=== PATIENT | female | born 1980 | race African-American/Black ===

== ENCOUNTER 2022-01-01 11:15 | Inpatient (IN) | payer OTHER, BC ==
[~2022-01-01] VITALS: Ht 167.6 cm; Wt 98.0 kg
[2022-01-01] MEDS ORDERED: ASPIRIN 325 MG TABLET PO ONE (11:45)
--- NOTE | 2022-01-01 11:47 | PHYS DOC ---
General Adult EDM: Chief Complaint: SHOULDER INJURY HPI: HPI: Patient is a 41 year old female who presents with for the last 2.5 to 3 weeks left shoulder blade sharp shooting type burning pain that goes down the arm into the hand. She states when she puts the left shoulder A certain way it helps the pain. Patient states that last night she started having right jaw pain. She states also the arm is tender itself. She states last night her left upper arm it felt swollen. Just traveled here from [place]. 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 She states she has not had any kind of a stress test. Patient denies chest pain, shortness of air, nausea, abdominal pain, vomiting, fever, diarrhea, focal weakness, headache, dizziness, syncope. She does have a history of high cholesterol, diabetes, hypothyroidism, thyroidectomy, Cardiac Arrest with PCN, Angioedema with Aspirin and Motrin. Patient's mother just recently and states her mother had 6 heart attacks. Review of Systems: Review of Systems: Constitutional: Denies fever or chills. [] Eyes: Denies change in visual acuity. [] HENT: Denies nasal congestion or sore throat. [] Respiratory: Denies cough or shortness of breath. [] Cardiovascular: Denies chest pain or edema. [] GI: Denies abdominal pain, nausea, vomiting, bloody stools or diarrhea. [] : Denies dysuria. [] Musculoskeletal: Denies back pain or joint pain. [] Integument: Denies rash. [] Neurologic: Denies headache, focal weakness or sensory changes. [] Endocrine: Denies polyuria or polydipsia. [] Lymphatic: Denies swollen glands. [] Psychiatric: Denies depression or anxiety. [] Heart Score: C/O Chest Pain: No HEART Score for Chest Pain: HEART Score for Chest Pain Response (Comments) Value History Moderately Suspicious 1 ECG Nonspecific Repolarizatio 1 Age < 45 0 Risk Factors >3 Risk Factors or Hx CAD 2 Troponin < Normal Limit 0 Total 4 Risk Factors: Risk Factors: DM, Current or recent (<one month) smoker, HTN, HLP, family history of CAD, obesity. Risk Scores: Score 0 - 3: 2.5% MACE over next 6 weeks - Discharge Home Score 4 - 6: 20.3% MACE over next 6 weeks - Admit for Clinical Observation Score 7 - 10: 72.7% MACE over next 6 weeks - Early Invasive Strategies Physical Exam: PE: Constitutional: Well developed, well nourished, no acute distress, non-toxic appearance. [] HENT: Normocephalic, atraumatic, bilateral external ears normal, oropharynx moist, no oral exudates, nose normal. [] Eyes: PERRLA, EOMI, conjunctiva normal, no discharge. [] Neck: Normal range of motion, no tenderness, supple, no stridor. [] Cardiovascular:Heart rate regular rhythm, no murmur [] Lungs & Thorax: Bilateral breath sounds clear to auscultation [] Abdomen: Bowel sounds normal, soft, no tenderness, no masses, no pulsatile masses. [] Skin: Warm, dry, no erythema, no rash. [] Back: No tenderness, no CVA tenderness. [] Extremities: No tenderness, no cyanosis, no clubbing, ROM intact, no edema. [] Neurologic: Alert and oriented X 3, normal motor function, normal sensory function, no focal deficits noted. [] Psychologic: Affect normal, judgement normal, mood normal. [] EKG: EK and read by Dr. Olson as sinus rhythm with a prolonged QT but no STEMI. Radiology/Procedures: Radiology/Procedures: [] Impression: [facility] [address] [place] [address] IMAGING REPORT Signed PATIENT: JORGE ASCENCIO ACCOUNT: [id number] : 1980 LOCATION: ER AGE: 41 SEX: F EXAM STATUS: PRE ER ORD. PHYSICIAN: KHALIDA ATKINS APRN REASON: tenderness, swelling, DONOVAN NOTIFIED PROCEDURE: VENOUS UPPER EXTREMITY LEFT PROCEDURE: Ultrasound venous system of the left upper extremity done 01/01/2022 12:44 PM. REASON FOR STUDY: Pain and swelling. TECHNIQUE: Color Doppler and spectral waveform analysis was performed along with real-time grayscale technique. FINDINGS: Deep veins of the upper extremity show normal Doppler flow and augmentation of flow and are normally compressible in their accessible segments. The basilic and cephalic veins are also patent, as are the radial and ulnar veins in the forearm and the internal jugular vein in the neck. IMPRESSION: No evidence of venous thrombosis. Electronically signed by: Miles Oglesby Jr., MD (01/01/2022 12:45 PM) [id number] DICTATED and SIGNED BY: MILES OGLESBY Jr, MD DATE: 01/01/22 1244 [facility] [address] [place] [address] IMAGING REPORT Signed PATIENT: JORGE ASCENCIO ACCOUNT: [id number] : 1980 LOCATION: ER AGE: 41 SEX: F EXAM STATUS: REG ER ORD. PHYSICIAN: KHALIDA ATKINS APRN REASON: chest pain PROCEDURE: PORTABLE CHEST 1V EXAMINATION: Chest radiograph. VIEWS: 1 COMPARISON: 08/09/2007 INDICATION:41 years, Female, chest pain. FINDINGS: Normal cardiomediastinal silhouette. No focal consolidation. No pleural effusion or pneumothorax. No acute osseous process. IMPRESSION: No acute cardiopulmonary process. Electronically signed by: Jakob Shin MD (01/01/2022 1:45 PM) [facility] DICTATED and SIGNED BY: JAKOB SHIN MD DATE: 01/01/22 1344 Course & Med Decision Making: Course & Med Decision Making Pertinent Labs and Imaging studies reviewed. (See chart for details) See HPI. Alert and oriented x4. Ambulatory with a steady gait. Speaks in full clear sentences. She is not on any kind of aspirin or blood thinner. Radial pulses strong present. Cap refill less than 2 seconds. No focal weakness. No swelling to extremities. No redness or swelling or sores. Full range of motion of all joints. No joint swelling. Tenderness to the upper left arm with palpation. No dental caries or facial swelling. She denies any injuries. She states she goes to the dentist regularly for deep cleanings. Lungs are clear to auscultation all lobes. Cap refill less than 2 seconds. Due to patient's history and her mom having several heart attacks patient be admitted for observation purposes. Admitted to the hospitalist. Blood work unremarkable. So far troponin is unremarkable. EKG was a sinus rhythm but had a prolonged QT. Given Rocephin for UTI. [] Dragon Disclaimer: Dragon Disclaimer: This electronic medical record was generated, in whole or in part, using a voice recognition dictation system. Departure Departure Impression: Primary Impression: Chest pain Qualified Codes: R07.9 - Chest pain, unspecified Disposition: 09 ADMITTED INPATIENT Admitting Physician: WAGNER Condition: STABLE KHALIDA ATKINS APRN Jan 01, 2022 11:47
[2022-01-01 12:24] LABS: CREATININE 1.3 mg/dL (0.6-1.0); GFR 44.7
[2022-01-01 12:29] LABS: ALBUMIN 4.1 g/dL (3.4-5.0); MAGNESIUM 2.2 mg/dL (1.8-2.4); TOTAL BILIRUBIN 0.4 mg/dL (0.2-1.0); TOTAL PROTEIN 8.1 g/dL (6.4-8.2)
[2022-01-01 12:45] LABS: BASO % 1 % (0-3); EOS # 0.1 x10^3/uL (0.0-0.7); EOS % 3 % (0-3); HEMATOCRIT 42.6 % (36.0-47.0); HEMOGLOBIN 13.7 g/dL (12.0-15.5); LYMPH # 1.5 x10^3/uL (1.0-4.8); LYMPH % 34 % (24-48); MEAN CORPUSCULAR HEMOGLOBIN 28 pg (25-35); MEAN CORPUSCULAR HGB CONC 32 g/dL (31-37); MEAN CORPUSCULAR VOLUME 87 fL (79-100); MONO # 0.7 x10^3/uL (0.0-1.1); MONO % 16 % (0-9); NEUT % 46 % (31-73); PLATELET COUNT 208 x10^3/uL (140-400); RED CELL DISTRIBUTION WIDTH 13.4 % (11.5-14.5); WHITE BLOOD COUNT 4.4 x10^3/uL (4.0-11.0)
--- NOTE | 2022-01-01 12:47 | RAD ---
PROCEDURE: Ultrasound venous system of the left upper extremity done 01/01/2022 12:44 PM. REASON FOR STUDY: Pain and swelling. TECHNIQUE: Color Doppler and spectral waveform analysis was performed along with real-time grayscale technique. FINDINGS: Deep veins of the upper extremity show normal Doppler flow and augmentation of flow and are normally compressible in their accessible segments. The basilic and cephalic veins are also patent, as are the radial and ulnar veins in the forearm and the internal jugular vein in the neck. IMPRESSION: No evidence of venous thrombosis. Electronically signed by: Dennis Oglesby Jr., MD (01/01/2022 12:45 PM) [id number]
[2022-01-01 12:57] LABS: BARBITURATES NEG (NEG); BENZODIAZEPINES NEG (NEG); CANNABINOIDS NEG (NEG); COCAINE NEG (NEG); METHADONE NEG (NEG); OPIATES NEG (NEG); PHENCYCLIDINE NEG (NEG)
[2022-01-01 13:01] LABS: AMPHETAMINE/METHAMPHETAMINE NEG (NEG)
[2022-01-01 13:28] LABS: BACTERIA,URINE FEW /HPF (0-FEW); RBC,URINE OCC /HPF (0-2); YEAST,URINE PRESENT /HPF
[2022-01-01] MEDS ORDERED: DEXTROSE 50% 25 GM / 50ML DISP.SYRIN. IV PRN (13:45)
[2022-01-01] MEDS ORDERED: NITROGLYCERIN SUBLINGUAL 0.4 MG BOTTLE OF 25. SL PRN (13:45)
[2022-01-01] MEDS ORDERED: hydrALAZINE 20 MG/ML VIAL. IVP PRN (13:45)
[2022-01-01] MEDS ORDERED: ONDANSETRON ODT 4 MG TAB.RAPDIS. PO PRN ×2 (13:45→18:00)
[2022-01-01] MEDS ORDERED: IV DEXTROSE 5% 250 ML BAG. IV PRN (13:45)
[2022-01-01] MEDS ORDERED: ONDANSETRON PF 4 MG/2 ML VIAL. IVP PRN (13:45)
--- NOTE | 2022-01-01 13:47 | PDOC1 ---
History and Physical Date of Admission Date of Admission DATE: 01/01/22 TIME: 13:46 Identification/Chief Complaint Chief Complaint Chest pain Source Source: Patient History of Present Illness History of Present Illness Ms Patiño is a 41-year-old female with past medical history of HTN, type 2 diabetes who traveled here from [place] to visit her and and for work conference. She has had left shoulder and arm pain for 2-1/2 to 3 weeks with some numbness but now has come to the ED because she developed right jaw pain and numbness. Pain in her left arm is posterior and shooting and burning into her left deltoid posterior through her triceps down into the posterior aspect of her arm into her hand. It is relieved with elevation and heat and massage. Pain is about 4-10 at the worst. She became more concerned when she was at [email or web address] at work conference earlier in the day on 01/01/2022 and while driving away developed jaw pain and some numbness on the right side. She does note she has history of TMJ but given her mother's cardiac history your and symptoms of jaw pain proceeding that MRI patient became more concerned particularly given her left arm symptoms and came to ED for further treatment. 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 She has not underwent a cardiac stress test previously. No overt chest pain no shortness of breath no nausea abdominal pain vomiting. No recent sick contacts. For her left arm pain she had actually seen her PCP prior to traveling from [place] and was started on Pepcid and given shoulder exercises with some improvement. She fully vaccinated against COVID-19. She does have a allergy to aspirin with angioedema. She notes her diabetes been well controlled. Historically she is status post total thyroidectomy for thyroid cancer and is on levothyroxine and T3 replacement and for diabetes does not have blood sugar greater than 140. She has been working on diet and exercise. She and her have 3 adult children and they frequently travel. When patient is traveling she is her left arm trouble her luggage and notes frequent talking with luggage thinks her arm pain was overuse injury but is concerned with her mother's history as her mother had 6 previous MD. Chest radiograph by my interpretation no acute cardiopulmonary findings no left shoulder dislocation or fracture. Left upper extremity ultrasound interpretation with no venous thrombus. Labs revealed WBC 4.4, Hb 13.7, platelets 208, NA 138, K4, BUN 18, CR 1.3, glucose 121, calcium 9, magnesium 2.2, LFTs within normal laboratory limits, high-sensitivity troponin is 5 and on repeat was less than 4, NT proBNP is 20, urine drug screen in ED was negative, urinalysis positive for leukocyte esterase trace blood though with moderate squamous epithelial cells likely contaminant. Urine hCG negative. EKG by my interpretation is sinus rhythm rate of 79 bpm normal axis normal intervals except for prolonged QT at QTC 520. No TWI no ST segment elevations or depressions. Admitted for further observation. Past Medical History Cardiovascular: HTN, Hyperlipidemia Heme/Onc: Cancer (Thyroid) Endocrine: Diabetes, Hypothyroidism Past Surgical History Past Surgical History Thyroidectomy Hemorrhoidectomy Family History Family History: Coronary Artery Disease (Mother), Diabetes Social History Smoke: No ALCOHOL: rare Drugs: None Current Medications Current Medications Current Medications Aspirin (Cal Aspirin) 325 mg 1X ONCE PO ; Start 01/01/22 at 11:45; Stop 01/01/22 at 11:46; Status UNV Allergies Allergies: Coded Allergies: Penicillins (Verified Allergy, Severe, 01/01/22) "CODE BLUE" aspirin (Verified Allergy, Severe, ANGIOEDEMA, 01/01/22) HIVES, AND TONGUE SWELLING ibuprofen (Verified Allergy, Severe, HIVES, TONGUE SWELLING, 01/01/22) shellfish derived (Verified Allergy, Intermediate, 01/01/22) bee venom protein (honey bee) (Verified Allergy, Unknown, 01/01/22) ROS General: No: Chills, Night Sweats, Fatigue, Malaise, Appetite, Other PSYCHOLOGICAL ROS: No: Anxiety, Behavioral Disorder, Concentration difficultie, Decreased libido, Depression, Disorientation, Hallucinations, Hostility, Irritablity, Memory difficulties, Mood Swings, Obsessive thoughts, Physical abuse, Sexual abuse, Sleep disturbances, Suicidal ideation, Other Eyes: No Blurry vision, No Decreased vision, No Double vision, No Dry eyes, No Excessive tearing, No Eye Pain, No Itchy Eyes, No Loss of vision, No Photophobia, No Scotomata, No Uses contacts, No Uses glasses, No Other HEENT: No: Heacaches, Visual Changes, Hearing change, Nasal congestion, Nasal discharge, Oral lesions, Sinus pain, Sore Throat, Epistaxis, Sneezing, Snoring, Tinnitus, Vertigo, Vocal changes, Other ALLERGY AND IMMUNOLOGY: No: Hives, Insect Bite Sensitivity, Itchy/Watery Eyes, Nasal Congestion, Post Nasal Drip, Seasonal Allergies, Other Hematological and Lymphatic: No: Bleeding Problems, Blood Clots, Blood Transfusions, Brusing, Night Sweats, Pallor, Swollen Lymph Nodes, Other ENDOCRINE: No: Breast Changes, Galactorrhea, Hair Pattern Changes, Hot Flashes, Malaise/lethargy, Mood Swings, Palpitations, Polydipsia/polyuria, Skin Changes, Temperature Intolerance, Unexpected Weight Changes, Other Breast: No New/Changing Breast Lumps, No Nipple changes, No Nipple discharge, No Other Respiratory: No: Cough, Hemoptysis, Orthopnea, Pleuritic Pain, Shortness of breath, SOB with excertion, Sputum Changes, Stridor, Tachypnea, Wheezing, Other Cardiovascular: No Chest Pain, No Palpitations, No Orthopnea, No Paroxysmal Noc. Dyspnea, No Edema, No Lt Headedness, No Other Gastrointestinal: No Nausea, No Vomiting, No Abdominal Pain, No Diarrhea, No Constipation, No Melena, No Hematochezia, No Other Genitourinary: No Dysuria, No Frequency, No Incontinence, No Hematuria, No Retention, No Discharge, No Urgency, No Pain, No Flank Pain, No Other, No , No , No , No , No , No , No Musculoskeletal: Yes Joint Pain; No Gait Disturbance, No Joint Stiffness, No Joint Swelling, No Muscle Pain, No Muscular Weakness, No Pain In:, No Swelling In:, No Other Neurological: Yes Numbness/Tingling; No Behavorial Changes, No Bowel/Bladder ControlChng, No Confusion, No Dizziness, No Gait Disturbance, No Headaches, No Impaired Coord/balance, No Memory Loss, No Seizures, No Speech Problems, No Tremors, No Visual Changes, No Weakness, No Other Skin: No Dry Skin, No Eczema, No Hair Changes, No Lumps, No Mole Changes, No Mottling, No Nail Changes, No Pruritus, No Rash, No Skin Lesion Changes, No Other, No Acne Physical Exam General: Alert, Oriented X3, Cooperative, No acute distress HEENT: Atraumatic, PERRLA, EOMI, Mucous membr. moist/pink Lungs: Clear to auscultation, Normal air movement Heart: S1S2, RRR, no thrills, no rubs, no gallops, no murmurs Abdomen: Normal bowel sounds, Soft, No tenderness, No hepatosplenomegaly, No masses Rectal Exam: not examined Extremities: No clubbing, No cyanosis, No edema, Normal pulses, Other (Left shoulder tender with external rotation and posterior movement) Skin: No rashes, No breakdown, No significant lesion Neuro: Normal gait, Normal speech, Strength at 5/5 X4 ext, Normal tone, Sensation intact, Cranial nerves 3-12 NL, Reflexes 2+ Psych/Mental Status: Mental status NL, Mood NL Vitals Vitals Vital Signs Date Time Temp Pulse Resp B/P (MAP) Pulse Ox O2 Delivery O2 Flow Rate FiO2 01/01/22 11:17 98.4 84 16 122/69 (86) 97 Room Air 98.4 Labs Labs Laboratory Tests Test 01/01/22 12:00 01/01/22 12:30 01/01/22 12:43 White Blood Count 4.4 x10^3/uL (4.0-11.0) Red Blood Count 4.90 x10^6/uL (3.50-5.40) Hemoglobin 13.7 g/dL (12.0-15.5) Hematocrit 42.6 % (36.0-47.0) Mean Corpuscular Volume 87 fL (79-100) Mean Corpuscular Hemoglobin 28 pg (25-35) Mean Corpuscular Hemoglobin Concent 32 g/dL (31-37) Red Cell Distribution Width 13.4 % (11.5-14.5) Platelet Count 208 x10^3/uL (140-400) Neutrophils (%) (Auto) 46 % (31-73) Lymphocytes (%) (Auto) 34 % (24-48) Monocytes (%) (Auto) 16 % (0-9) Eosinophils (%) (Auto) 3 % (0-3) Basophils (%) (Auto) 1 % (0-3) Neutrophils # (Auto) 2.0 x10^3/uL (1.8-7.7) Lymphocytes # (Auto) 1.5 x10^3/uL (1.0-4.8) Monocytes # (Auto) 0.7 x10^3/uL (0.0-1.1) Eosinophils # (Auto) 0.1 x10^3/uL (0.0-0.7) Basophils # (Auto) 0.0 x10^3/uL (0.0-0.2) Sodium Level 138 mmol/L (136-145) Potassium Level 4.0 mmol/L (3.5-5.1) Chloride Level 102 mmol/L (98-107) Carbon Dioxide Level 26 mmol/L (21-32) Anion Gap 10 (6-14) Blood Urea Nitrogen 18 mg/dL (7-20) Creatinine 1.3 mg/dL (0.6-1.0) Estimated GFR (Cockcroft-Gault) 44.7 BUN/Creatinine Ratio 14 (6-20) Glucose Level 121 mg/dL (70-99) Calcium Level 9.0 mg/dL (8.5-10.1) Magnesium Level 2.2 mg/dL (1.8-2.4) Total Bilirubin 0.4 mg/dL (0.2-1.0) Aspartate Amino Transf (AST/SGOT) 15 U/L (15-37) Alanine Aminotransferase (ALT/SGPT) 24 U/L (14-59) Alkaline Phosphatase 48 U/L (46-116) Troponin I High Sensitivity 5 ng/L (4-50) Total Protein 8.1 g/dL (6.4-8.2) Albumin 4.1 g/dL (3.4-5.0) Albumin/Globulin Ratio 1.0 (1.0-1.7) Urine Collection Type Unknown Urine Color (Auto) Light yellow Urine Turbidity Clear Urine pH (Auto) 6.0 (<5.0-8.0) Urine Specific [place] 1.019 (1.000-1.030) Urine Protein (Auto) Negative mg/dL (Negative) Urine Glucose (Auto)(UA) Negative mg/dL (Negative) Urine Ketones (Auto) Negative mg/dL (Negative) Urine Blood (Auto) Trace (Negative) Urine Nitrite Negative (Negative) Urine Bilirubin (Auto) Negative (Negative) Urine Urobilinogen (Auto) Normal mg/dL (Normal) Urine Leukocyte Esterase (Auto) Moderate (Negative) Urine RBC Occ /HPF (0-2) Urine WBC 5-10 /HPF (0-4) Urine Squamous Epithelial Cells Mod /LPF Urine Bacteria Few /HPF (0-FEW) Urine Mucus Mod /LPF Urine Yeast Present /HPF Urine Opiates Screen Neg (NEG) Urine Methadone Screen Neg (NEG) Urine Barbiturates Neg (NEG) Urine Phencyclidine Screen Neg (NEG) Urine Amphetamine/Methamphetamine Neg (NEG) Urine Benzodiazepines Screen Neg (NEG) Urine Cocaine Screen Neg (NEG) Urine Cannabinoids Screen Neg (NEG) Urine Ethyl Alcohol Neg (NEG) Bedside Urine HCG, Qualitative Hcg negative (Negative) Laboratory Tests Test 01/01/22 12:00 01/01/22 12:30 01/01/22 12:43 White Blood Count 4.4 x10^3/uL (4.0-11.0) Red Blood Count 4.90 x10^6/uL (3.50-5.40) Hemoglobin 13.7 g/dL (12.0-15.5) Hematocrit 42.6 % (36.0-47.0) Mean Corpuscular Volume 87 fL (79-100) Mean Corpuscular Hemoglobin 28 pg (25-35) Mean Corpuscular Hemoglobin Concent 32 g/dL (31-37) Red Cell Distribution Width 13.4 % (11.5-14.5) Platelet Count 208 x10^3/uL (140-400) Neutrophils (%) (Auto) 46 % (31-73) Lymphocytes (%) (Auto) 34 % (24-48) Monocytes (%) (Auto) 16 % (0-9) Eosinophils (%) (Auto) 3 % (0-3) Basophils (%) (Auto) 1 % (0-3) Neutrophils # (Auto) 2.0 x10^3/uL (1.8-7.7) Lymphocytes # (Auto) 1.5 x10^3/uL (1.0-4.8) Monocytes # (Auto) 0.7 x10^3/uL (0.0-1.1) Eosinophils # (Auto) 0.1 x10^3/uL (0.0-0.7) Basophils # (Auto) 0.0 x10^3/uL (0.0-0.2) Sodium Level 138 mmol/L (136-145) Potassium Level 4.0 mmol/L (3.5-5.1) Chloride Level 102 mmol/L (98-107) Carbon Dioxide Level 26 mmol/L (21-32) Anion Gap 10 (6-14) Blood Urea Nitrogen 18 mg/dL (7-20) Creatinine 1.3 mg/dL (0.6-1.0) Estimated GFR (Cockcroft-Gault) 44.7 BUN/Creatinine Ratio 14 (6-20) Glucose Level 121 mg/dL (70-99) Calcium Level 9.0 mg/dL (8.5-10.1) Magnesium Level 2.2 mg/dL (1.8-2.4) Total Bilirubin 0.4 mg/dL (0.2-1.0) Aspartate Amino Transf (AST/SGOT) 15 U/L (15-37) Alanine Aminotransferase (ALT/SGPT) 24 U/L (14-59) Alkaline Phosphatase 48 U/L (46-116) Troponin I High Sensitivity 5 ng/L (4-50) Total Protein 8.1 g/dL (6.4-8.2) Albumin 4.1 g/dL (3.4-5.0) Albumin/Globulin Ratio 1.0 (1.0-1.7) Urine Collection Type Unknown Urine Color (Auto) Light yellow Urine Turbidity Clear Urine pH (Auto) 6.0 (<5.0-8.0) Urine Specific [place] 1.019 (1.000-1.030) Urine Protein (Auto) Negative mg/dL (Negative) Urine Glucose (Auto)(UA) Negative mg/dL (Negative) Urine Ketones (Auto) Negative mg/dL (Negative) Urine Blood (Auto) Trace (Negative) Urine Nitrite Negative (Negative) Urine Bilirubin (Auto) Negative (Negative) Urine Urobilinogen (Auto) Normal mg/dL (Normal) Urine Leukocyte Esterase (Auto) Moderate (Negative) Urine RBC Occ /HPF (0-2) Urine WBC 5-10 /HPF (0-4) Urine Squamous Epithelial Cells Mod /LPF Urine Bacteria Few /HPF (0-FEW) Urine Mucus Mod /LPF Urine Yeast Present /HPF Urine Opiates Screen Neg (NEG) Urine Methadone Screen Neg (NEG) Urine Barbiturates Neg (NEG) Urine Phencyclidine Screen Neg (NEG) Urine Amphetamine/Methamphetamine Neg (NEG) Urine Benzodiazepines Screen Neg (NEG) Urine Cocaine Screen Neg (NEG) Urine Cannabinoids Screen Neg (NEG) Urine Ethyl Alcohol Neg (NEG) Bedside Urine HCG, Qualitative Hcg negative (Negative) Images Images PROCEDURE: VENOUS UPPER EXTREMITY LEFT PROCEDURE: Ultrasound venous system of the left upper extremity done 01/01/2022 12:44 PM. REASON FOR STUDY: Pain and swelling. TECHNIQUE: Color Doppler and spectral waveform analysis was performed along with real-time grayscale technique. FINDINGS: Deep veins of the upper extremity show normal Doppler flow and augmentation of flow and are normally compressible in their accessible segments. The basilic and cephalic veins are also patent, as are the radial and ulnar veins in the forearm and the internal jugular vein in the neck. IMPRESSION: No evidence of venous thrombosis. Electronically signed by: Miles Oglesby Jr., MD (01/01/2022 12:45 PM) [id number] DICTATED and SIGNED BY: MILES OGLESBY Jr, MD DATE: 01/01/22 1244 [facility] [address] [place] [address] IMAGING REPORT Signed PATIENT: JORGE PATIÑO ACCOUNT: [id number] : 1980 LOCATION: ER AGE: 41 SEX: F EXAM STATUS: REG ER ORD. PHYSICIAN: KHALIDA ATKINS APRN REASON: chest pain PROCEDURE: PORTABLE CHEST 1V EXAMINATION: Chest radiograph. VIEWS: 1 COMPARISON: 08/09/2007 INDICATION:41 years, Female, chest pain. FINDINGS: Normal cardiomediastinal silhouette. No focal consolidation. No pleural effusion or pneumothorax. No acute osseous process. IMPRESSION: No acute cardiopulmonary process. Electronically signed by: Jakob Shin MD (01/01/2022 1:45 PM) [facility] DICTATED and SIGNED BY: JAKOB SHIN MD DATE: 01/01/22 1344 VTE Prophylaxis Ordered VTE Prophylaxis Devices: No VTE Pharmacological Prophylaxi: Yes Assessment/Plan Assessment/Plan Left arm pain -seems to be rotator cuff injury and possible radial nerve impingement due to overuse injury. Ruled out MD with EKG and troponin. Will ask cardiology to see Right jaw pain -resolved. Likely TMJ DM2 - well controlled. Holding metformin in case contrast dye exposure planned HTN - cont home meds Overweight - counseled on lifestyle modification Hypothyroidism - s/p total thyroidectomy, cont home meds FEN - ADA PPX - ambulatory FULL CODE Dispo - observation for chest pain Justifications for Admission Other Justification LAURA MAR MD Jan 01, 2022 13:47
[2022-01-01] MEDS ORDERED: NITROFURANTOIN MONOHYD/M-CRYST 100 MG CAPSULE. PO ONE (14:00)
[2022-01-01 16:15] VITALS: BP 118/65
--- NOTE | 2022-01-01 16:15 | NUR ---
Patient arrived to room 664 via wheelchair from ER at 1615. Patient A&OX4. VSS. Complaints of L arm pain rating it a 8/10 which feels dull. at bedside. The patient, JORGE ASCENCIO, 41 y/o, F admitted by LAURA MAR MD, was given written information regarding hospital policies, unit procedures and contact persons. Valuables were checked and noted. Will continue to monitor.
[2022-01-01] MEDS ORDERED: CHOL10004 PO (16:57)
[2022-01-01] MEDS ORDERED: OMEG1CAP27 PO (16:57)
[2022-01-01] MEDS ORDERED: FAMO20TA5 PO (16:57)
[2022-01-01] MEDS ORDERED: OMEP40CA7 PO (16:57)
[2022-01-01] MEDS ORDERED: ONDA4TAB12 PO (16:57)
[2022-01-01] MEDS ORDERED: ALBU2.5V8 IH (16:57)
[2022-01-01] MEDS ORDERED: MULT-245 PO (16:57)
[2022-01-01] MEDS ORDERED: DOCU-109 PO (16:57)
[2022-01-01] MEDS ORDERED: LIOT5TAB4 PO (16:57)
[2022-01-01] MEDS ORDERED: METF500T16 PO (16:57)
[2022-01-01] MEDS ORDERED: LEVO137T3 PO (16:57)
[2022-01-01] MEDS ORDERED: NAPR-514 PO (16:57)
[2022-01-01] MEDS ORDERED: SUMA50TA3 PO (16:57)
[2022-01-01] MEDS ORDERED: CRESTOR5 MG PO (16:57)
[2022-01-01] MEDS: INSULIN LISPRO 300 UNITS/3 ML VIAL. SQ SCH (17:00)
[2022-01-01] MEDS: ACETAMINOPHEN 325 MG TABLET. PO PRN (17:05)
[2022-01-01] MEDS ORDERED: FAMOTIDINE 20 MG TABLET. PO PRN (18:00)
[2022-01-01] MEDS ORDERED: ALBUTEROL SULFATE 2.5 MG/3 ML NEBU. NEB PRN (18:00)
[2022-01-01 20:15] VITALS: BP 111/56
[2022-01-01] MEDS: DOCUSATE SODIUM 100 MG CAPSULE. PO SCH (20:34)
[2022-01-01] MEDS ORDERED: ATORVASTATIN CALCIUM 40 MG TABLET. PO SCH (21:00)
[2022-01-01 23:04] VITALS: BP 109/61
[2022-01-02] MEDS: ACETAMINOPHEN 325 MG TABLET. PO PRN ×2 (00:14→08:33)
[2022-01-02 03:28] VITALS: BP 109/58
[2022-01-02] MEDS ORDERED: LEVOTHYROXINE 137 MCG TABLET PO SCH (06:00)
[2022-01-02] MEDS ORDERED: LIOTHYRONINE 5 MCG TABLET. PO SCH (06:00)
--- NOTE | 2022-01-02 06:22 | EKG ---
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
[2022-01-02 07:00] VITALS: BP 108/56
[2022-01-02] MEDS ORDERED: PANTOPRAZOLE 40 MG TABLET.DR. PO SCH (07:30)
[2022-01-02] MEDS: INSULIN LISPRO 300 UNITS/3 ML VIAL. SQ SCH ×2 (08:00→12:00)
[2022-01-02 08:08] LABS: CALCIUM 8.5 mg/dL (8.5-10.1); CREATININE 1.1 mg/dL (0.6-1.0); GFR 65.6; POTASSIUM 4.1 mmol/L (3.5-5.1)
--- NOTE | 2022-01-02 08:19 | PDOC2 ---
CONSULT Date of Consult Date of Consult DATE: 01/02/22 TIME: 08:18 Reason for Consult Reason for Consult: Shoulder and jaw pain Referring Physician Referring Physician: Identification/Chief Complaint Chief Complaint Shoulder pain Source Source: Chart review, Patient History of Present Illness Reason for Visit: 41-year-old female resident of [place], without any previous cardiac history was apparently visiting family in and started noticing left shoulder and arm pain approximately 2 weeks and more recent onset right jaw pain and numbness. Sy mptoms not related to exertion or food intake. She denied any orthopnea/PND, palpitations or syncope. She presented to the ED since she was very concerned considering her strong family history of premature coronary artery disease. Past Medical History Cardiovascular: HTN, Hyperlipidemia Heme/Onc: Cancer (Thyroid) Endocrine: Diabetes, Hypothyroidism Family History Family History: Coronary Artery Disease (Mother), Diabetes Social History No ALCOHOL: rare Drugs: None Current Problem List Problem List Problems Medical Problems: (1) Chest pain Status: Acute Current Medications Current Medications Current Medications Aspirin (Cal Aspirin) 325 mg 1X ONCE PO ; Start 01/01/22 at 11:45; Stop 01/01/22 at 11:46; Status UNV Insulin Human Lispro (HumaLOG) 0-9 UNITS TIDWMEALS SQ ; Start 01/01/22 at 17:00 Dextrose (Dextrose 50%-Water Syringe) 12.5 gm PRN Q15MIN PRN IV SEE COMMENTS; Start 01/01/22 at 13:45 Dextrose (Iv Dextrose 5%) 250 ml PRN Q15MIN PRN IV SEE COMMENTS; Start 01/01/22 at 13:45 Ondansetron HCl (Zofran) 4 mg PRN Q4HRS PRN IVP NAUSEA/VOMITING; Start 01/01/22 at 13:45 Acetaminophen (Tylenol) 650 mg PRN Q6HRS PRN PO MILD PAIN / TEMP > 100.3'F Last administered on 01/02/22at 00:14; Start 01/01/22 at 13:45 Hydralazine HCl (Apresoline Inj) 10 mg PRN Q4HRS PRN IVP ELEVATED BP, SEE COMMENTS; Start 01/01/22 at 13:45 Ondansetron HCl (Zofran Odt) 4 mg PRN Q4HRS PRN PO NAUSEA; Start 01/01/22 at 13:45 Nitroglycerin (Nitrostat) 0.4 mg PRN Q5MIN PRN SL CHEST PAIN; Start 01/01/22 at 13:45 Nitrofurantoin Macrocrystals (Macrobid) 100 mg 1X ONCE PO Last administered on 01/01/22at 15:10; Start 01/01/22 at 14:00; Stop 01/01/22 at 14:01; Status DC Albuterol Sulfate (Ventolin Neb Soln) 2.5 mg PRN Q4HRS PRN NEB WHEEZING; Start 01/01/22 at 18:00 Vitamin D (Vitamin D3) 1,000 unit DAILY PO ; Start 01/02/22 at 09:00 Docusate Sodium (Colace) 100 mg BID PO ; Start 01/01/22 at 21:00 Famotidine (Pepcid) 20 mg PRN BID PRN PO ACID REFLUX; Start 01/01/22 at 18:00 Levothyroxine Sodium (Synthroid) 137 mcg DAILY06 PO Last administered on 01/02/22at 05:12; Start 01/02/22 at 06:00 Liothyronine Sodium (Cytomel) 5 mcg DAILY06 PO Last administered on 01/02/22at 05:12; Start 01/02/22 at 06:00 Ondansetron HCl (Zofran Odt) 4 mg PRN Q8HRS PRN PO NAUSEA/VOMITING; Start 01/01/22 at 18:00; Status UNV Multivitamins (Thera M Plus) 1 tab DAILY PO ; Start 01/02/22 at 09:00 Fish Oil (Fish Oil) 3,000 mg DAILY PO ; Start 01/02/22 at 09:00 Pantoprazole Sodium (Protonix) 40 mg DAILYAC PO ; Start 01/02/22 at 07:30 Atorvastatin Calcium (Lipitor) 40 mg QHS PO ; Start 01/01/22 at 21:00; Stop 01/01/22 at 21:16; Status DC Sumatriptan Succinate (Imitrex) 50 mg PRN DAILY PRN PO MIGRAINE HEADACHE; Start 01/01/22 at 18:15 Atorvastatin Calcium (Lipitor) 40 mg DAILY PO ; Start 01/02/22 at 09:00 Vitamin B Complex (Folbic Tablet) 1 tab DAILY PO ; Start 01/02/22 at 09:00 Active Scripts Active Reported Imitrex (Sumatriptan Succinate) 50 Mg Tablet 50 Mg PO ONCE PRN Ondansetron Odt (Ondansetron) 4 Mg Tab.rapdis 1 Tab PO PRN Q8HRS PRN Proair Hfa Inhaler (Albuterol Sulfate) 8.5 Gm Hfa.aer.ad 2 Puff IH PRN Q4-6HRS PRN 21 Days Multi Vitamin Daily (Multivitamin) 1 Each Tablet 1 Tab PO DAILY 30 Days Fish Oil 1,000 Mg Softgel ([place]-3 Fatty Acids/Fish Oil) 1 Each Capsule 3 Cap PO DAILY 30 Days WITH MEALS Liothyronine Sodium 5 Mcg Tablet 1 Tab PO DAILY 30 Days Crestor (Rosuvastatin Calcium) 5 Mg Tablet 10 Mg PO HS Levothyroxine Sodium 137 Mcg Tablet 1 Tab PO DAILY Metformin Hcl 500 Mg Tablet 500 Mg PO BIDWMEALS Famotidine 20 Mg Tablet 20 Mg PO PRN BID Omeprazole 40 Mg Capsule.dr 1 Cap PO DAILY Naproxen 500 Mg Tablet 1 Tab PO BID 30 Days Vitamin D3 (Vitamin D) 25 Mcg Tablet 25 Mcg PO DAILY 1,000 UNITS = 25 MCG Colace (Docusate Sodium) 100 Mg Capsule 1 Cap PO BID 30 Days Allergies Allergies: Coded Allergies: Penicillins (Verified Allergy, Severe, 01/01/22) "CODE BLUE" aspirin (Verified Allergy, Severe, ANGIOEDEMA, 01/01/22) HIVES, AND TONGUE SWELLING ibuprofen (Verified Allergy, Severe, HIVES, TONGUE SWELLING, 01/01/22) shellfish derived (Verified Allergy, Intermediate, 01/01/22) bee venom protein (honey bee) (Verified Allergy, Unknown, 01/01/22) ROS PSYCHOLOGICAL ROS: No: Hallucinations Eyes: No Loss of vision HEENT: No: Epistaxis Respiratory: No: Hemoptysis, Shortness of breath Cardiovascular: No Chest Pain Gastrointestinal: No Vomiting, No Diarrhea Genitourinary: No Hematuria Neurological: No Seizures Skin: No Rash Physical Exam General: Alert, Oriented X3 HEENT: Atraumatic Lungs: Clear to auscultation Heart: Regular rate Abdomen: Soft Extremities: No edema Skin: No rashes Psych/Mental Status: Mood NL Vitals VITALS Vital Signs Date Time Temp Pulse Resp B/P (MAP) Pulse Ox O2 Delivery O2 Flow Rate FiO2 01/02/22 03:28 97.9 72 18 109/58 (75) 98 Room Air 97.9 Labs Labs Laboratory Tests Test 01/01/22 12:00 01/01/22 12:30 01/01/22 12:43 01/01/22 15:39 White Blood Count 4.4 x10^3/uL (4.0-11.0) Red Blood Count 4.90 x10^6/uL (3.50-5.40) Hemoglobin 13.7 g/dL (12.0-15.5) Hematocrit 42.6 % (36.0-47.0) Mean Corpuscular Volume 87 fL (79-100) Mean Corpuscular Hemoglobin 28 pg (25-35) Mean Corpuscular Hemoglobin Concent 32 g/dL (31-37) Red Cell Distribution Width 13.4 % (11.5-14.5) Platelet Count 208 x10^3/uL (140-400) Neutrophils (%) (Auto) 46 % (31-73) Lymphocytes (%) (Auto) 34 % (24-48) Monocytes (%) (Auto) 16 % (0-9) Eosinophils (%) (Auto) 3 % (0-3) Basophils (%) (Auto) 1 % (0-3) Neutrophils # (Auto) 2.0 x10^3/uL (1.8-7.7) Lymphocytes # (Auto) 1.5 x10^3/uL (1.0-4.8) Monocytes # (Auto) 0.7 x10^3/uL (0.0-1.1) Eosinophils # (Auto) 0.1 x10^3/uL (0.0-0.7) Basophils # (Auto) 0.0 x10^3/uL (0.0-0.2) Sodium Level 138 mmol/L (136-145) Potassium Level 4.0 mmol/L (3.5-5.1) Chloride Level 102 mmol/L (98-107) Carbon Dioxide Level 26 mmol/L (21-32) Anion Gap 10 (6-14) Blood Urea Nitrogen 18 mg/dL (7-20) Creatinine 1.3 mg/dL (0.6-1.0) Estimated GFR (Cockcroft-Gault) 44.7 BUN/Creatinine Ratio 14 (6-20) Glucose Level 121 mg/dL (70-99) Calcium Level 9.0 mg/dL (8.5-10.1) Magnesium Level 2.2 mg/dL (1.8-2.4) Total Bilirubin 0.4 mg/dL (0.2-1.0) Aspartate Amino Transf (AST/SGOT) 15 U/L (15-37) Alanine Aminotransferase (ALT/SGPT) 24 U/L (14-59) Alkaline Phosphatase 48 U/L (46-116) Troponin I High Sensitivity 5 ng/L (4-50) < 4 ng/L (4-50) UF-Xbt-O-Type Natriuretic Peptide 20 pg/mL (0-124) Total Protein 8.1 g/dL (6.4-8.2) Albumin 4.1 g/dL (3.4-5.0) Albumin/Globulin Ratio 1.0 (1.0-1.7) Urine Collection Type Unknown Urine Color (Auto) Light yellow Urine Turbidity Clear Urine pH (Auto) 6.0 (<5.0-8.0) Urine Specific [place] 1.019 (1.000-1.030) Urine Protein (Auto) Negative mg/dL (Negative) Urine Glucose (Auto)(UA) Negative mg/dL (Negative) Urine Ketones (Auto) Negative mg/dL (Negative) Urine Blood (Auto) Trace (Negative) Urine Nitrite Negative (Negative) Urine Bilirubin (Auto) Negative (Negative) Urine Urobilinogen (Auto) Normal mg/dL (Normal) Urine Leukocyte Esterase (Auto) Moderate (Negative) Urine RBC Occ /HPF (0-2) Urine WBC 5-10 /HPF (0-4) Urine Squamous Epithelial Cells Mod /LPF Urine Bacteria Few /HPF (0-FEW) Urine Mucus Mod /LPF Urine Yeast Present /HPF Urine Opiates Screen Neg (NEG) Urine Methadone Screen Neg (NEG) Urine Barbiturates Neg (NEG) Urine Phencyclidine Screen Neg (NEG) Urine Amphetamine/Methamphetamine Neg (NEG) Urine Benzodiazepines Screen Neg (NEG) Urine Cocaine Screen Neg (NEG) Urine Cannabinoids Screen Neg (NEG) Urine Ethyl Alcohol Neg (NEG) Bedside Urine HCG, Qualitative Hcg negative (Negative) Test 01/01/22 16:33 01/01/22 20:13 01/02/22 01:55 Glucose (Fingerstick) 133 mg/dL (70-99) 133 mg/dL (70-99) Sodium Level 136 mmol/L (136-145) Potassium Level 4.1 mmol/L (3.5-5.1) Chloride Level 102 mmol/L (98-107) Carbon Dioxide Level 24 mmol/L (21-32) Anion Gap 10 (6-14) Blood Urea Nitrogen 17 mg/dL (7-20) Creatinine 1.1 mg/dL (0.6-1.0) Estimated GFR (Cockcroft-Gault) 65.6 Glucose Level 143 mg/dL (70-99) Calcium Level 8.5 mg/dL (8.5-10.1) Magnesium Level 2.0 mg/dL (1.8-2.4) Troponin I High Sensitivity 5 ng/L (4-50) Laboratory Tests Test 01/01/22 12:00 01/01/22 12:30 01/01/22 12:43 01/01/22 15:39 White Blood Count 4.4 x10^3/uL (4.0-11.0) Red Blood Count 4.90 x10^6/uL (3.50-5.40) Hemoglobin 13.7 g/dL (12.0-15.5) Hematocrit 42.6 % (36.0-47.0) Mean Corpuscular Volume 87 fL (79-100) Mean Corpuscular Hemoglobin 28 pg (25-35) Mean Corpuscular Hemoglobin Concent 32 g/dL (31-37) Red Cell Distribution Width 13.4 % (11.5-14.5) Platelet Count 208 x10^3/uL (140-400) Neutrophils (%) (Auto) 46 % (31-73) Lymphocytes (%) (Auto) 34 % (24-48) Monocytes (%) (Auto) 16 % (0-9) Eosinophils (%) (Auto) 3 % (0-3) Basophils (%) (Auto) 1 % (0-3) Neutrophils # (Auto) 2.0 x10^3/uL (1.8-7.7) Lymphocytes # (Auto) 1.5 x10^3/uL (1.0-4.8) Monocytes # (Auto) 0.7 x10^3/uL (0.0-1.1) Eosinophils # (Auto) 0.1 x10^3/uL (0.0-0.7) Basophils # (Auto) 0.0 x10^3/uL (0.0-0.2) Sodium Level 138 mmol/L (136-145) Potassium Level 4.0 mmol/L (3.5-5.1) Chloride Level 102 mmol/L (98-107) Carbon Dioxide Level 26 mmol/L (21-32) Anion Gap 10 (6-14) Blood Urea Nitrogen 18 mg/dL (7-20) Creatinine 1.3 mg/dL (0.6-1.0) Estimated GFR (Cockcroft-Gault) 44.7 BUN/Creatinine Ratio 14 (6-20) Glucose Level 121 mg/dL (70-99) Calcium Level 9.0 mg/dL (8.5-10.1) Magnesium Level 2.2 mg/dL (1.8-2.4) Total Bilirubin 0.4 mg/dL (0.2-1.0) Aspartate Amino Transf (AST/SGOT) 15 U/L (15-37) Alanine Aminotransferase (ALT/SGPT) 24 U/L (14-59) Alkaline Phosphatase 48 U/L (46-116) Troponin I High Sensitivity 5 ng/L (4-50) < 4 ng/L (4-50) RW-Fub-G-Type Natriuretic Peptide 20 pg/mL (0-124) Total Protein 8.1 g/dL (6.4-8.2) Albumin 4.1 g/dL (3.4-5.0) Albumin/Globulin Ratio 1.0 (1.0-1.7) Urine Collection Type Unknown Urine Color (Auto) Light yellow Urine Turbidity Clear Urine pH (Auto) 6.0 (<5.0-8.0) Urine Specific [place] 1.019 (1.000-1.030) Urine Protein (Auto) Negative mg/dL (Negative) Urine Glucose (Auto)(UA) Negative mg/dL (Negative) Urine Ketones (Auto) Negative mg/dL (Negative) Urine Blood (Auto) Trace (Negative) Urine Nitrite Negative (Negative) Urine Bilirubin (Auto) Negative (Negative) Urine Urobilinogen (Auto) Normal mg/dL (Normal) Urine Leukocyte Esterase (Auto) Moderate (Negative) Urine RBC Occ /HPF (0-2) Urine WBC 5-10 /HPF (0-4) Urine Squamous Epithelial Cells Mod /LPF Urine Bacteria Few /HPF (0-FEW) Urine Mucus Mod /LPF Urine Yeast Present /HPF Urine Opiates Screen Neg (NEG) Urine Methadone Screen Neg (NEG) Urine Barbiturates Neg (NEG) Urine Phencyclidine Screen Neg (NEG) Urine Amphetamine/Methamphetamine Neg (NEG) Urine Benzodiazepines Screen Neg (NEG) Urine Cocaine Screen Neg (NEG) Urine Cannabinoids Screen Neg (NEG) Urine Ethyl Alcohol Neg (NEG) Bedside Urine HCG, Qualitative Hcg negative (Negative) Test 01/01/22 16:33 01/01/22 20:13 01/02/22 01:55 Glucose (Fingerstick) 133 mg/dL (70-99) 133 mg/dL (70-99) Sodium Level 136 mmol/L (136-145) Potassium Level 4.1 mmol/L (3.5-5.1) Chloride Level 102 mmol/L (98-107) Carbon Dioxide Level 24 mmol/L (21-32) Anion Gap 10 (6-14) Blood Urea Nitrogen 17 mg/dL (7-20) Creatinine 1.1 mg/dL (0.6-1.0) Estimated GFR (Cockcroft-Gault) 65.6 Glucose Level 143 mg/dL (70-99) Calcium Level 8.5 mg/dL (8.5-10.1) Magnesium Level 2.0 mg/dL (1.8-2.4) Troponin I High Sensitivity 5 ng/L (4-50) Assessment/Plan Assessment/Plan 1. Left shoulder/arm and right jaw pain, most probably musculoskeletal and not cardiac etiology. Myocardial infarction has been ruled out. EKG without acute changes. She does have strong family history of premature coronary artery disease. Recommend outpatient ischemic evaluation with primary physician in [place]. 2. Hypertension: Controlled 3. Hypothyroidism: Continue levothyroxine 4. Hyperlipidemia: Continue statins 5. DM2: Continue treatment per IM Okay for DC from cardiac standpoint. Thank you for your consultation ELLA NIETO MD Jan 02, 2022 08:19
[2022-01-02] MEDS: DOCUSATE SODIUM 100 MG CAPSULE. PO SCH (08:33)
[2022-01-02] MEDS ORDERED: VITAMIN B12,B9,B6 COMPLEX 1 TABLET. PO SCH (09:00)
[2022-01-02] MEDS ORDERED: OMEGA-3 FATTY ACIDS/FISH OIL 1,000 MG CAPSULE. PO SCH (09:00)
[2022-01-02] MEDS ORDERED: ATORVASTATIN CALCIUM 40 MG TABLET. PO SCH (09:00)
[2022-01-02] MEDS ORDERED: CHOLECALCIFEROL (VITAMIN D3) 1,000 UNIT TABLET PO SCH (09:00)
[2022-01-02] MEDS ORDERED: MULTIVITAMIN with MINERAL TABLET. PO SCH (09:00)
--- NOTE | 2022-01-02 10:39 | PDOC ---
[employer] PROGRESS NOTE Date of Service DOS: DATE: 01/02/22 TIME: 10:38 Chief Complaint Chief Complaint Left arm pain -seems to be rotator cuff injury and possible radial nerve impingement due to overuse injury. Ruled out HI with EKG and troponin. Will ask cardiology to see outpatient Right jaw pain -resolved. Likely TMJ DM2 - well controlled. Holding metformin in case contrast dye exposure planned HTN - cont home meds Overweight - counseled on lifestyle modification Hypothyroidism - s/p total thyroidectomy, cont home meds FEN - ADA PPX - ambulatory FULL CODE Dispo - observation for chest pain History of Present Illness History of Present Illness Ms Patiño is a 41-year-old female with past medical history of HTN, type 2 diabetes who traveled here from [place] to visit her and and for work conference. She has had left shoulder and arm pain for 2-1/2 to 3 weeks with some numbness but now has come to the ED because she developed right jaw pain and numbness. Pain in her left arm is posterior and shooting and burning into her left deltoid posterior through her triceps down into the posterior aspect of her arm into her hand. It is relieved with elevation and heat and massage. Pain is about 4-10 at the worst. She became more concerned when she was at [employer] at work conference earlier in the day on 01/01/2022 and while driving away developed jaw pain and some numbness on the right side. She does note she has history of TMJ but given her mother's cardiac history your and symptoms of jaw pain proceeding that MRI patient became more concerned particularly given her left arm symptoms and came to ED for further treatment. 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 She has not underwent a cardiac stress test previously. No overt chest pain no shortness of breath no nausea abdominal pain vomiting. No recent sick contacts. For her left arm pain she had actually seen her PCP prior to traveling from [place] and was started on Pepcid and given shoulder exercises with some improvement. She fully vaccinated against COVID-19. She does have a allergy to aspirin with angioedema. She notes her diabetes been well controlled. Historically she is status post total thyroidectomy for thyroid cancer and is on levothyroxine and T3 replacement and for diabetes does not have blood sugar greater than 140. She has been working on diet and exercise. She and her have 3 adult children and they frequently travel. When patient is traveling she is her left arm trouble her luggage and notes frequent talking with luggage thinks her arm pain was overuse injury but is concerned with her mother's history as her mother had 6 previous HI. Chest radiograph by my interpretation no acute cardiopulmonary findings no left shoulder dislocation or fracture. Left upper extremity ultrasound interpretation with no venous thrombus. Labs revealed WBC 4.4, Hb 13.7, platelets 208, NA 138, K4, BUN 18, CR 1.3, glucose 121, calcium 9, magnesium 2.2, LFTs within normal laboratory limits, high-sensitivity troponin is 5 and on repeat was less than 4, NT proBNP is 20, urine drug screen in ED was negative, urinalysis positive for leukocyte esterase trace blood though with moderate squamous epithelial cells likely contaminant. Urine hCG negative. EKG by my interpretation is sinus rhythm rate of 79 bpm normal axis normal intervals except for prolonged QT at QTC 520. No TWI no ST segment elevations or depressions. Admitted for further observation. 01/02: Creatinine 1.1. Did have some further right jaw pain and left shoulder pain before falling asleep that remitted with acetaminophen. No telemetry events overnight per my interpretation. Discussed with cardiology we recommended for her to have outpatient stress testing that she does have a cardiology appointment with the [facility] physician in [place]. Vitals/I&O Vitals/I&O: Vital Signs Date Time Temp Pulse Resp B/P (MAP) Pulse Ox O2 Delivery O2 Flow Rate FiO2 01/02/22 08:00 Room Air 01/02/22 07:00 98.2 88 18 108/56 (73) 97 98.2 I & O 01/01/22 01/01/22 01/02/22 15:00 23:00 07:00 Intake Total 410 ml Balance 410 ml Physical Exam General: Alert, Oriented X3, Cooperative, No acute distress Abdomen: Normal bowel sounds, Soft, No tenderness, No hepatosplenomegaly, No masses Extremities: No clubbing, No cyanosis, No edema, Normal pulses, Other (Left shoulder tender with external rotation and posterior movement) Skin: No rashes, No breakdown, No significant lesion Labs Labs: Laboratory Tests Test 01/01/22 12:00 01/01/22 12:30 01/01/22 12:43 01/01/22 15:39 White Blood Count 4.4 x10^3/uL (4.0-11.0) Red Blood Count 4.90 x10^6/uL (3.50-5.40) Hemoglobin 13.7 g/dL (12.0-15.5) Hematocrit 42.6 % (36.0-47.0) Mean Corpuscular Volume 87 fL (79-100) Mean Corpuscular Hemoglobin 28 pg (25-35) Mean Corpuscular Hemoglobin Concent 32 g/dL (31-37) Red Cell Distribution Width 13.4 % (11.5-14.5) Platelet Count 208 x10^3/uL (140-400) Neutrophils (%) (Auto) 46 % (31-73) Lymphocytes (%) (Auto) 34 % (24-48) Monocytes (%) (Auto) 16 % (0-9) Eosinophils (%) (Auto) 3 % (0-3) Basophils (%) (Auto) 1 % (0-3) Neutrophils # (Auto) 2.0 x10^3/uL (1.8-7.7) Lymphocytes # (Auto) 1.5 x10^3/uL (1.0-4.8) Monocytes # (Auto) 0.7 x10^3/uL (0.0-1.1) Eosinophils # (Auto) 0.1 x10^3/uL (0.0-0.7) Basophils # (Auto) 0.0 x10^3/uL (0.0-0.2) Sodium Level 138 mmol/L (136-145) Potassium Level 4.0 mmol/L (3.5-5.1) Chloride Level 102 mmol/L (98-107) Carbon Dioxide Level 26 mmol/L (21-32) Anion Gap 10 (6-14) Blood Urea Nitrogen 18 mg/dL (7-20) Creatinine 1.3 mg/dL (0.6-1.0) Estimated GFR (Cockcroft-Gault) 44.7 BUN/Creatinine Ratio 14 (6-20) Glucose Level 121 mg/dL (70-99) Calcium Level 9.0 mg/dL (8.5-10.1) Magnesium Level 2.2 mg/dL (1.8-2.4) Total Bilirubin 0.4 mg/dL (0.2-1.0) Aspartate Amino Transf (AST/SGOT) 15 U/L (15-37) Alanine Aminotransferase (ALT/SGPT) 24 U/L (14-59) Alkaline Phosphatase 48 U/L (46-116) Troponin I High Sensitivity 5 ng/L (4-50) < 4 ng/L (4-50) JU-Map-G-Type Natriuretic Peptide 20 pg/mL (0-124) Total Protein 8.1 g/dL (6.4-8.2) Albumin 4.1 g/dL (3.4-5.0) Albumin/Globulin Ratio 1.0 (1.0-1.7) Urine Collection Type Unknown Urine Color (Auto) Light yellow Urine Turbidity Clear Urine pH (Auto) 6.0 (<5.0-8.0) Urine Specific [place] 1.019 (1.000-1.030) Urine Protein (Auto) Negative mg/dL (Negative) Urine Glucose (Auto)(UA) Negative mg/dL (Negative) Urine Ketones (Auto) Negative mg/dL (Negative) Urine Blood (Auto) Trace (Negative) Urine Nitrite Negative (Negative) Urine Bilirubin (Auto) Negative (Negative) Urine Urobilinogen (Auto) Normal mg/dL (Normal) Urine Leukocyte Esterase (Auto) Moderate (Negative) Urine RBC Occ /HPF (0-2) Urine WBC 5-10 /HPF (0-4) Urine Squamous Epithelial Cells Mod /LPF Urine Bacteria Few /HPF (0-FEW) Urine Mucus Mod /LPF Urine Yeast Present /HPF Urine Opiates Screen Neg (NEG) Urine Methadone Screen Neg (NEG) Urine Barbiturates Neg (NEG) Urine Phencyclidine Screen Neg (NEG) Urine Amphetamine/Methamphetamine Neg (NEG) Urine Benzodiazepines Screen Neg (NEG) Urine Cocaine Screen Neg (NEG) Urine Cannabinoids Screen Neg (NEG) Urine Ethyl Alcohol Neg (NEG) Bedside Urine HCG, Qualitative Hcg negative (Negative) Test 01/01/22 16:33 01/01/22 20:13 01/02/22 01:55 01/02/22 08:19 Glucose (Fingerstick) 133 mg/dL (70-99) 133 mg/dL (70-99) 136 mg/dL (70-99) Sodium Level 136 mmol/L (136-145) Potassium Level 4.1 mmol/L (3.5-5.1) Chloride Level 102 mmol/L (98-107) Carbon Dioxide Level 24 mmol/L (21-32) Anion Gap 10 (6-14) Blood Urea Nitrogen 17 mg/dL (7-20) Creatinine 1.1 mg/dL (0.6-1.0) Estimated GFR (Cockcroft-Gault) 65.6 Glucose Level 143 mg/dL (70-99) Calcium Level 8.5 mg/dL (8.5-10.1) Magnesium Level 2.0 mg/dL (1.8-2.4) Troponin I High Sensitivity 5 ng/L (4-50) Assessment and Plan Assessmemt and Plan Problems Medical Problems: (1) Chest pain Status: Acute Comment Review of Relevant I have reviewed the following items niko (where applicable) has been applied. Medications: Current Medications Medications (Trade) Dose Ordered Sig/Jose J Route PRN Reason Start Time Stop Time Status Last Admin Dose Admin Acetaminophen (Tylenol) 650 mg PRN Q6HRS PRN PO MILD PAIN / TEMP > 100.3'F 01/01/22 13:45 01/02/22 08:33 Nitrofurantoin Macrocrystals (Macrobid) 100 mg 1X ONCE PO 01/01/22 14:00 01/01/22 14:01 DC 01/01/22 15:10 Vitamin D (Vitamin D3) 1,000 unit DAILY PO 01/02/22 09:00 01/02/22 08:34 Docusate Sodium (Colace) 100 mg BID PO 01/01/22 21:00 01/02/22 08:33 Levothyroxine Sodium (Synthroid) 137 mcg DAILY06 PO 01/02/22 06:00 01/02/22 05:12 Liothyronine Sodium (Cytomel) 5 mcg DAILY06 PO 01/02/22 06:00 01/02/22 05:12 Multivitamins (Thera M Plus) 1 tab DAILY PO 01/02/22 09:00 01/02/22 08:34 Fish Oil (Fish Oil) 3,000 mg DAILY PO 01/02/22 09:00 01/02/22 08:34 Pantoprazole Sodium (Protonix) 40 mg DAILYAC PO 01/02/22 07:30 01/02/22 08:34 Atorvastatin Calcium (Lipitor) 40 mg DAILY PO 01/02/22 09:00 01/02/22 08:34 Vitamin B Complex (Folbic Tablet) 1 tab DAILY PO 01/02/22 09:00 01/02/22 08:33 Justifications for Admission Other Justification LAURA MAR MD Jan 02, 2022 10:39
--- NOTE | 2022-01-02 10:41 | PDOC3 ---
Discharge Summary Visit Information Date of Admission: Jan 01, 2022 Date of Discharge: Jan 02, 2022 Admitting Diagnosis: Chest pain, THEO Final Diagnosis Problems Medical Problems: (1) Chest pain Status: Acute Brief Hospital Course Allergies Allergies Coded Allergies Type Severity Reaction Last Updated Verified Penicillins Allergy Severe 01/01/22 Yes aspirin Allergy Severe ANGIOEDEMA 01/01/22 Yes ibuprofen Allergy Severe HIVES, TONGUE SWELLING 01/01/22 Yes shellfish derived Allergy Intermediate 01/01/22 Yes bee venom protein (honey bee) Allergy Unknown 01/01/22 Yes Vital Signs Vital Signs Date Time Temp Pulse Resp B/P (MAP) Pulse Ox O2 Delivery O2 Flow Rate FiO2 01/02/22 08:00 Room Air 01/02/22 07:00 98.2 88 18 108/56 (73) 97 98.2 Lab Results Laboratory Tests Test 01/01/22 12:00 01/01/22 12:30 01/01/22 12:43 01/01/22 15:39 White Blood Count 4.4 x10^3/uL (4.0-11.0) Red Blood Count 4.90 x10^6/uL (3.50-5.40) Hemoglobin 13.7 g/dL (12.0-15.5) Hematocrit 42.6 % (36.0-47.0) Mean Corpuscular Volume 87 fL (79-100) Mean Corpuscular Hemoglobin 28 pg (25-35) Mean Corpuscular Hemoglobin Concent 32 g/dL (31-37) Red Cell Distribution Width 13.4 % (11.5-14.5) Platelet Count 208 x10^3/uL (140-400) Neutrophils (%) (Auto) 46 % (31-73) Lymphocytes (%) (Auto) 34 % (24-48) Monocytes (%) (Auto) 16 % (0-9) Eosinophils (%) (Auto) 3 % (0-3) Basophils (%) (Auto) 1 % (0-3) Neutrophils # (Auto) 2.0 x10^3/uL (1.8-7.7) Lymphocytes # (Auto) 1.5 x10^3/uL (1.0-4.8) Monocytes # (Auto) 0.7 x10^3/uL (0.0-1.1) Eosinophils # (Auto) 0.1 x10^3/uL (0.0-0.7) Basophils # (Auto) 0.0 x10^3/uL (0.0-0.2) Sodium Level 138 mmol/L (136-145) Potassium Level 4.0 mmol/L (3.5-5.1) Chloride Level 102 mmol/L (98-107) Carbon Dioxide Level 26 mmol/L (21-32) Anion Gap 10 (6-14) Blood Urea Nitrogen 18 mg/dL (7-20) Creatinine 1.3 mg/dL (0.6-1.0) Estimated GFR (Cockcroft-Gault) 44.7 BUN/Creatinine Ratio 14 (6-20) Glucose Level 121 mg/dL (70-99) Calcium Level 9.0 mg/dL (8.5-10.1) Magnesium Level 2.2 mg/dL (1.8-2.4) Total Bilirubin 0.4 mg/dL (0.2-1.0) Aspartate Amino Transf (AST/SGOT) 15 U/L (15-37) Alanine Aminotransferase (ALT/SGPT) 24 U/L (14-59) Alkaline Phosphatase 48 U/L (46-116) Troponin I High Sensitivity 5 ng/L (4-50) < 4 ng/L (4-50) NE-Hrh-A-Type Natriuretic Peptide 20 pg/mL (0-124) Total Protein 8.1 g/dL (6.4-8.2) Albumin 4.1 g/dL (3.4-5.0) Albumin/Globulin Ratio 1.0 (1.0-1.7) Urine Collection Type Unknown Urine Color (Auto) Light yellow Urine Turbidity Clear Urine pH (Auto) 6.0 (<5.0-8.0) Urine Specific Stitzer 1.019 (1.000-1.030) Urine Protein (Auto) Negative mg/dL (Negative) Urine Glucose (Auto)(UA) Negative mg/dL (Negative) Urine Ketones (Auto) Negative mg/dL (Negative) Urine Blood (Auto) Trace (Negative) Urine Nitrite Negative (Negative) Urine Bilirubin (Auto) Negative (Negative) Urine Urobilinogen (Auto) Normal mg/dL (Normal) Urine Leukocyte Esterase (Auto) Moderate (Negative) Urine RBC Occ /HPF (0-2) Urine WBC 5-10 /HPF (0-4) Urine Squamous Epithelial Cells Mod /LPF Urine Bacteria Few /HPF (0-FEW) Urine Mucus Mod /LPF Urine Yeast Present /HPF Urine Opiates Screen Neg (NEG) Urine Methadone Screen Neg (NEG) Urine Barbiturates Neg (NEG) Urine Phencyclidine Screen Neg (NEG) Urine Amphetamine/Methamphetamine Neg (NEG) Urine Benzodiazepines Screen Neg (NEG) Urine Cocaine Screen Neg (NEG) Urine Cannabinoids Screen Neg (NEG) Urine Ethyl Alcohol Neg (NEG) Bedside Urine HCG, Qualitative Hcg negative (Negative) Test 01/01/22 16:33 01/01/22 20:13 01/02/22 01:55 01/02/22 08:19 Glucose (Fingerstick) 133 mg/dL (70-99) 133 mg/dL (70-99) 136 mg/dL (70-99) Sodium Level 136 mmol/L (136-145) Potassium Level 4.1 mmol/L (3.5-5.1) Chloride Level 102 mmol/L (98-107) Carbon Dioxide Level 24 mmol/L (21-32) Anion Gap 10 (6-14) Blood Urea Nitrogen 17 mg/dL (7-20) Creatinine 1.1 mg/dL (0.6-1.0) Estimated GFR (Cockcroft-Gault) 65.6 Glucose Level 143 mg/dL (70-99) Calcium Level 8.5 mg/dL (8.5-10.1) Magnesium Level 2.0 mg/dL (1.8-2.4) Troponin I High Sensitivity 5 ng/L (4-50) Laboratory Tests Test 01/01/22 12:00 01/01/22 12:30 01/01/22 12:43 01/01/22 15:39 White Blood Count 4.4 x10^3/uL (4.0-11.0) Red Blood Count 4.90 x10^6/uL (3.50-5.40) Hemoglobin 13.7 g/dL (12.0-15.5) Hematocrit 42.6 % (36.0-47.0) Mean Corpuscular Volume 87 fL (79-100) Mean Corpuscular Hemoglobin 28 pg (25-35) Mean Corpuscular Hemoglobin Concent 32 g/dL (31-37) Red Cell Distribution Width 13.4 % (11.5-14.5) Platelet Count 208 x10^3/uL (140-400) Neutrophils (%) (Auto) 46 % (31-73) Lymphocytes (%) (Auto) 34 % (24-48) Monocytes (%) (Auto) 16 % (0-9) Eosinophils (%) (Auto) 3 % (0-3) Basophils (%) (Auto) 1 % (0-3) Neutrophils # (Auto) 2.0 x10^3/uL (1.8-7.7) Lymphocytes # (Auto) 1.5 x10^3/uL (1.0-4.8) Monocytes # (Auto) 0.7 x10^3/uL (0.0-1.1) Eosinophils # (Auto) 0.1 x10^3/uL (0.0-0.7) Basophils # (Auto) 0.0 x10^3/uL (0.0-0.2) Sodium Level 138 mmol/L (136-145) Potassium Level 4.0 mmol/L (3.5-5.1) Chloride Level 102 mmol/L (98-107) Carbon Dioxide Level 26 mmol/L (21-32) Anion Gap 10 (6-14) Blood Urea Nitrogen 18 mg/dL (7-20) Creatinine 1.3 mg/dL (0.6-1.0) Estimated GFR (Cockcroft-Gault) 44.7 BUN/Creatinine Ratio 14 (6-20) Glucose Level 121 mg/dL (70-99) Calcium Level 9.0 mg/dL (8.5-10.1) Magnesium Level 2.2 mg/dL (1.8-2.4) Total Bilirubin 0.4 mg/dL (0.2-1.0) Aspartate Amino Transf (AST/SGOT) 15 U/L (15-37) Alanine Aminotransferase (ALT/SGPT) 24 U/L (14-59) Alkaline Phosphatase 48 U/L (46-116) Troponin I High Sensitivity 5 ng/L (4-50) < 4 ng/L (4-50) VR-Xqt-R-Type Natriuretic Peptide 20 pg/mL (0-124) Total Protein 8.1 g/dL (6.4-8.2) Albumin 4.1 g/dL (3.4-5.0) Albumin/Globulin Ratio 1.0 (1.0-1.7) Urine Collection Type Unknown Urine Color (Auto) Light yellow Urine Turbidity Clear Urine pH (Auto) 6.0 (<5.0-8.0) Urine Specific Stitzer 1.019 (1.000-1.030) Urine Protein (Auto) Negative mg/dL (Negative) Urine Glucose (Auto)(UA) Negative mg/dL (Negative) Urine Ketones (Auto) Negative mg/dL (Negative) Urine Blood (Auto) Trace (Negative) Urine Nitrite Negative (Negative) Urine Bilirubin (Auto) Negative (Negative) Urine Urobilinogen (Auto) Normal mg/dL (Normal) Urine Leukocyte Esterase (Auto) Moderate (Negative) Urine RBC Occ /HPF (0-2) Urine WBC 5-10 /HPF (0-4) Urine Squamous Epithelial Cells Mod /LPF Urine Bacteria Few /HPF (0-FEW) Urine Mucus Mod /LPF Urine Yeast Present /HPF Urine Opiates Screen Neg (NEG) Urine Methadone Screen Neg (NEG) Urine Barbiturates Neg (NEG) Urine Phencyclidine Screen Neg (NEG) Urine Amphetamine/Methamphetamine Neg (NEG) Urine Benzodiazepines Screen Neg (NEG) Urine Cocaine Screen Neg (NEG) Urine Cannabinoids Screen Neg (NEG) Urine Ethyl Alcohol Neg (NEG) Bedside Urine HCG, Qualitative Hcg negative (Negative) Test 01/01/22 16:33 01/01/22 20:13 01/02/22 01:55 01/02/22 08:19 Glucose (Fingerstick) 133 mg/dL (70-99) 133 mg/dL (70-99) 136 mg/dL (70-99) Sodium Level 136 mmol/L (136-145) Potassium Level 4.1 mmol/L (3.5-5.1) Chloride Level 102 mmol/L (98-107) Carbon Dioxide Level 24 mmol/L (21-32) Anion Gap 10 (6-14) Blood Urea Nitrogen 17 mg/dL (7-20) Creatinine 1.1 mg/dL (0.6-1.0) Estimated GFR (Cockcroft-Gault) 65.6 Glucose Level 143 mg/dL (70-99) Calcium Level 8.5 mg/dL (8.5-10.1) Magnesium Level 2.0 mg/dL (1.8-2.4) Troponin I High Sensitivity 5 ng/L (4-50) Brief Hospital Course Ms Patiño is a 41-year-old female with past medical history of HTN, type 2 diabetes who traveled here from [place] to visit her and and for work conference. She has had left shoulder and arm pain for 2-1/2 to 3 weeks with some numbness but now has come to the ED because she developed right jaw pain and numbness. Pain in her left arm is posterior and shooting and burning into her left deltoid posterior through her triceps down into the posterior aspect of her arm into her hand. It is relieved with elevation and heat and massage. Pain is about 4-10 at the worst. She became more concerned when she was at [employer] at work conference earlier in the day on 01/01/2022 and while driving away developed jaw pain and some numbness on the right side. She does note she has history of TMJ but given her mother's cardiac history your and symptoms of jaw pain proceeding that MRI patient became more concerned particularly given her left arm symptoms and came to ED for further treatment. 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 She has not underwent a cardiac stress test previously. No overt chest pain no shortness of breath no nausea abdominal pain vomiting. No recent sick contacts. For her left arm pain she had actually seen her PCP prior to traveling from [place] and was started on Pepcid and given shoulder exercises with some improvement. She fully vaccinated against COVID-19. She does have a allergy to aspirin with angioedema. She notes her diabetes been well controlled. Historically she is status post total thyroidectomy for thyroid cancer and is on levothyroxine and T3 replacement and for diabetes does not have blood sugar greater than 140. She has been working on diet and exercise. She and her have 3 adult children and they frequently travel. When patient is traveling she is her left arm trouble her luggage and notes frequent talking with luggage thinks her arm pain was overuse injury but is concerned with her mother's history as her mother had 6 previous MN. Chest radiograph by my interpretation no acute cardiopulmonary findings no left shoulder dislocation or fracture. Left upper extremity ultrasound interpretation with no venous thrombus. Labs revealed WBC 4.4, Hb 13.7, platelets 208, NA 138, K4, BUN 18, CR 1.3, glu cose 121, calcium 9, magnesium 2.2, LFTs within normal laboratory limits, high- sensitivity troponin is 5 and on repeat was less than 4, NT proBNP is 20, urine drug screen in ED was negative, urinalysis positive for leukocyte esterase trace blood though with moderate squamous epithelial cells likely contaminant. Urine hCG negative. EKG by my interpretation is sinus rhythm rate of 79 bpm normal axis normal intervals except for prolonged QT at QTC 520. No TWI no ST segment elevations or depressions. Admitted for further observation. 01/02: Creatinine 1.1. Did have some further right jaw pain and left shoulder pain before falling asleep that remitted with acetaminophen. No telemetry events overnight per my interpretation. Discussed with cardiology we recomme rufinod for her to have outpatient stress testing that she does have a cardiology appointment with the [facility] physician in [place]. Consults: Cardiology Problem list: Left arm pain -seems to be rotator cuff injury and possible radial nerve impin gement due to overuse injury. Ruled out MN with EKG and troponin. Will ask cardiology to see outpatient Right jaw pain -resolved. Likely TMJ DM2 - well controlled. Holding metformin in case contrast dye exposure planned HTN - cont home meds Overweight - counseled on lifestyle modification Hypothyroidism - s/p total thyroidectomy, cont home meds THEO - creatinine improved from 1.3 to 1.1, no hx of renal disease. Encouraged to hydrate after discharge. Plan: Outpatient cardiology follow-up. Greater than 30 minutes spent discharge home to self-care Discharge Information Condition at Discharge: Improved Follow Up: Weeks (1) Disposition/Orders: D/C to Home Scheduled Cholecalciferol (Vitamin D3) (Vitamin D3 ) 25 Mcg Tablet, 25 MCG PO DAILY for SUPPLEMENT, (Reported) 1,000 UNITS = 25 MCG Entered as Reported by: RYANNE ROBIN on 01/01/221656 Last Action: Continued on 01/01/221752 by LAURA MAR MD Docusate Sodium (Colace) 100 Mg Capsule, 1 CAP PO BID for for 30 Days, #60 Ref 0 (Reported) Entered as Reported by: RYANNE ROBIN on 01/01/221656 Last Action: Continued on 01/01/221752 by LAURA MAR MD Famotidine (Famotidine) 20 Mg Tablet, 20 MG PO PRN BID for , (Reported) Entered as Reported by: RYANNE ROBIN on 01/01/221656 Last Action: Continued on 01/01/221752 by LAURA MAR MD Levothyroxine Sodium (Levothyroxine Sodium) 137 Mcg Tablet, 1 TAB PO DAILY for , #30 Ref 5 (Reported) Entered as Reported by: RYANNE ROBIN on 01/01/221656 Last Action: Continued on 01/01/221752 by LAURA MAR MD Liothyronine Sodium (Liothyronine Sodium) 5 Mcg Tablet, 1 TAB PO DAILY for for 30 Days, #30 Ref 0 (Reported) Entered as Reported by: RYANNE ROBIN on 01/01/221656 Last Action: Continued on 01/01/221752 by LAURA MAR MD Metformin Hcl (Metformin Hcl) 500 Mg Tablet, 500 MG PO BIDWMEALS for ANTI- DIABETIC, Ref 0 (Reported) Entered as Reported by: RYANNE ROBIN on 01/01/221656 Last Action: HELD on 01/01/221752 by LAURA MAR MD Multivitamin (Multi Vitamin Daily) 1 Each Tablet, 1 TAB PO DAILY for for 30 Days, #30 Ref 0 (Reported) Entered as Reported by: RYANNE ROBIN on 01/01/221656 Last Action: Converted on 01/01/221752 by LAURA MAR MD Naproxen (Naproxen) 500 Mg Tablet, 1 TAB PO BID for pain for 30 Days, #60 Ref 0 (Reported) Entered as Reported by: RYANNE ROBIN on 01/01/221656 Last Action: New Order on 01/01/221656 by RYANNE ROBIN Binger-3 Fatty Acids/Fish Oil (Fish Oil 1,000 Mg Softgel) 1 Each Capsule, 3 CAP PO DAILY for for 30 Days, #90 Ref 0 (Reported) WITH MEALS Entered as Reported by: RYANNE ROBIN on 01/01/221656 Last Action: Converted on 01/01/221752 by LAURA MAR MD Omeprazole (Omeprazole) 40 Mg Capsule.dr, 1 CAP PO DAILY for , #30 Ref 3 (Reported) Entered as Reported by: RYANNE ROBIN on 01/01/221656 Last Action: Converted on 01/01/221752 by LAURA MAR MD Rosuvastatin Calcium (Crestor) 5 Mg Tablet, 10 MG PO HS for , #30 Ref 5 (Reported) Entered as Reported by: RYANNE ROBIN on 01/01/221656 Last Action: Converted on 01/01/221752 by LAURA MAR MD Scheduled PRN Albuterol Sulfate (Proair Hfa Inhaler) 8.5 Gm Hfa.aer.ad, 2 PUFF IH PRN Q4-6HRS PRN for wheezing for 21 Days, #1 Ref 0 (Reported) Entered as Reported by: RYANNE ROBIN on 01/01/221656 Last Action: Continued on 01/01/221752 by LAURA MAR MD Ondansetron (Ondansetron Odt) 4 Mg Tab.rapdis, 1 TAB PO PRN Q8HRS PRN for NAUSEA/VOMITING, #16 (Reported) Entered as Reported by: RYANNE ROBIN on 01/01/221656 Last Action: Continued on 01/01/221752 by LAURA MAR MD Sumatriptan Succinate (Imitrex) 50 Mg Tablet, 50 MG PO ONCE PRN for MIGRAINE HEADACHE, (Reported) Entered as Reported by: RYANNE ROBIN on 01/01/221656 Last Action: Converted on 01/01/221752 by LAURA MAR MD Justicifation of Admission Dx: Justifications for Admission: Justification of Admission Dx: Yes LAURA MAR MD Jan 02, 2022 10:41
[2022-01-02 11:00] VITALS: BP 107/64
--- NOTE | 2022-01-02 12:52 | NUR ---
Discharge Note: JORGE ASCENCIO Discharge instructions and discharge home medications reviewed with Patient and a copy given. All questions have been answered and understanding verbalized. The following instructions and handouts were given: radial nerve palsy, posterior shoulder execerises. Patient discharged to home with spouse.
== END 2022-01-02 12:35 | disposition home or self-care (01) | DRG 914 ==
LOC: ER 11:15 → 6 SOUTH 13:23
PROVIDERS: ADMIT Internal Medicine; ATTEND Internal Medicine
DX: S46.002A Unspecified injury of muscle(s) and tendon(s) of the rotator cuff of left shoulder, initial encounter (principal); N17.9 Acute kidney failure, unspecified; M25.832 Other specified joint disorders, left wrist; E11.9 Type 2 diabetes mellitus without complications; E66.3 Overweight; E78.00 Pure hypercholesterolemia, unspecified; E78.5 Hyperlipidemia, unspecified; E89.0 Postprocedural hypothyroidism; I10 Essential (primary) hypertension; T78.3XXA Angioneurotic edema, initial encounter; Z82.49 Family history of ischemic heart disease and other diseases of the circulatory system; Z83.3 Family history of diabetes mellitus; Z85.850 Personal history of malignant neoplasm of thyroid; Z86.74 Personal history of sudden cardiac arrest; Z88.6 Allergy status to analgesic agent; Z68.34 Body mass index [BMI] 34.0-34.9, adult; Z88.8 Allergy status to other drugs, medicaments and biological substances; Z88.0 Allergy status to penicillin; Z91.013 Allergy to seafood; X58.XXXA Exposure to other specified factors, initial encounter; Y93.89 Activity, other specified; Y92.89 Other specified places as the place of occurrence of the external cause; Y99.8 Other external cause status; M26.602 Left temporomandibular joint disorder, unspecified
CPT/HCPCS: 36415; 71045; 80048; 80053; 80307; 81001; 81025; 82962; 83735; 83880; 84484; 85025; 87086; 87147; 93005; 93971; J1815; 99285-25; G0378